=== PATIENT | male | born 1995 | race Hispanic/Latino ===

== ENCOUNTER → 2023-05-01 | Emergency (ER) | payer SELFPAY ==
[~2023-05-01] MED LIST: NA CHLORIDE 0.9% 100 ML ONE; TRANEXAMIC ACID 1,000 MG/10 ML VIAL IV ONE
[2023-05-01 21:32] LABS: Absolute Lymphocytes (CBC) 1.3 K/uL (0.7-4.9); Hematocrit 40.8 % (39.6-49.0); Lymphocytes % 28.1 % (15.3-44.8); MCV 85.7 fL (80-100); MPV 7.5 fL (7.6-11.3); Platelets 178 thou/uL (152-406); RBC Red Blood Cell Count 4.76 M/uL (4.33-5.43)
[2023-05-01 21:35] LABS: Protime INR 1.09
[2023-05-01 21:43] LABS: Albumin 4.3 g/dL (3.4-5.0); Bilirubin Total 0.5 mg/dL (0.2-1.0); Potassium 3.4 mEq/L (3.5-5.1); Protein, Total 7.7 g/dL (6.4-8.2)
--- NOTE | 2023-05-01 22:11 | ER ---
Nurse's Notes [facility] Name: Vincent Dotson Age: 27 yrs Sex: Male : 1995 Arrival Date: 05/01/2023 Time: 20:07 Bed 10 Private MD: Diagnosis: Acute gingivitis Presentation: 05/01 20:16 Chief complaint: Patient states: bleeding to upper and lower gums,onset yesterday after pf1 a deep cleaning at Dr. Mari office yesterday. Patient stated called Dr. Mari at 1600 and was told to go to ER with the bleeding did not slow down. 20:16 Coronavirus screen: Vaccine status: Patient reports receiving the 1st dose of the Covid pf1 vaccine. Client denies travel out of the [place] in the last 14 days. At this time, the client does not indicate any symptoms associated with coronavirus-19. Ebola Screen: Patient negative for fever greater than or equal to 101.5 degrees Fahrenheit, and additional compatible Ebola Virus Disease symptoms. Initial Sepsis Screen: Does the patient meet any 2 criteria? No. Patient's initial sepsis screen is negative. Does the patient have a suspected source of infection? No. Patient's initial sepsis screen is negative. Risk Assessment: Do you want to hurt yourself or someone else? Patient reports no desire to harm self or others. 20:16 Method Of Arrival: Ambulatory pf1 20:16 Acuity: TAYA 4 pf1 Historical: - Allergies: 20:38 No Known Allergies; pf1 - PMHx: 20:38 None; pf1 - PSHx: 20:38 Appendectomy; pf1 - Immunization history:: Adult Immunizations up to date, Client reports receiving the 1st dose of the Covid vaccine, pfizer Last tetanus immunization: > 10 years ago Flu vaccine is not up to date. - Social history:: Smoking status: Patient denies any tobacco usage or history of. Patient uses alcohol, weekly. Patient/guardian denies using street drugs. - Family history:: not pertinent. Screenin:20 [facility] ED Fall Risk Assessment (Adult) History of falling in the last 3 months, pf1 including since admission No falls in past 3 months (0 pts) Confusion or Disorientation No (0 pts) Intoxicated or Sedated No (0 pts) Impaired Gait No (0 pts) Mobility Assist Device Used No (0 pt) Altered Elimination No (0 pt) Score/Fall Risk Level 0 - 2 = Low Risk Oriented to surroundings, Maintained a safe environment, Educated pt \T\ family on fall prevention, incl call for assistance when getting out of bed, Assessed \T\ reinforced patient's understanding of fall precautions, Provided non-skid footwear, Hourly rounding (assess needs \T\ fall precautionary measures) done, Used ambulatory aids as needed (educated on \T\ assisted with), Used gait belt as appropriate. 20:20 Abuse screen: Denies threats or abuse. Nutritional screening: No deficits noted. pf1 Tuberculosis screening: No symptoms or risk factors identified. Assessment: 20:20 General: Appears in no apparent distress. comfortable, well groomed, well developed, pf1 Behavior is calm, cooperative, appropriate for age, quiet. 20:20 Pain: Denies pain. Neuro: No deficits noted. Level of Consciousness is awake, alert, pf1 obeys commands, Oriented to person, place, time, situation. Cardiovascular: No deficits noted. Capillary refill < 3 seconds Patient's skin is warm and dry. Respiratory: No deficits noted. Airway is patent Respiratory effort is even, unlabored, Respiratory pattern is regular, symmetrical. GI: No deficits noted. No signs and/or symptoms were reported involving the gastrointestinal system. : No deficits noted. No signs and/or symptoms were reported regarding the genitourinary system. EENT: Reports upper and lower gums bleeding,onset yesterday after a deep cleaning at the dentist office.. Derm: No deficits noted. No signs and/or symptoms reported regarding the dermatologic system. 21:30 Reassessment: Patient appears in no apparent distress at this time. Patient and/or pf1 family updated on plan of care and expected duration. Pain level reassessed. Patient is alert, oriented x 3, equal unlabored respirations, skin warm/dry/pink. 22:13 Reassessment: patient pending discharge after completion of fluids. pf1 22:30 Reassessment: Patient appears in no apparent distress at this time. Patient and/or pf1 family updated on plan of care and expected duration. Pain level reassessed. Patient is alert, oriented x 3, equal unlabored respirations, skin warm/dry/pink. Patient states symptoms have improved. Vital Signs: 20:16 BP 141 / 71; Pulse 65; Resp 18; Temp 98; Pulse Ox 99% on R/A; Weight 81.65 kg; Height 5 pf1 ft. 11 in. ; Pain 0/10; 21:30 BP 112 / 66; Pulse 60; Resp 16; Pulse Ox 100% ; pf1 22:30 BP 116 / 75; Pulse 62; Resp 16; Pulse Ox 99% on R/A; Pain 0/10; pf1 20:16 Body Mass Index 25.10 (81.65 kg, 180.34 cm) pf1 20:16 Pain Scale: Adult pf1 22:30 Pain Scale: Adult pf1 ED Course: 20:10 Patient arrived in ED. kj1 20:20 Patient has correct armband on for positive identification. Bed in low position. Call pf1 light in reach. 20:20 Arm band placed on right wrist. pf1 20:38 Triage completed. pf1 20:40 Rj Acosta MD is Attending Physician. rt 21:15 Inserted saline lock: 22 gauge in right antecubital area, using aseptic technique. pf1 Blood collected. 21:20 Ptt, Activated Sent. pf1 21:20 PT-INR Sent. pf1 21:20 CMP Sent. pf1 21:20 CBC with Diff Sent. pf1 22:54 No provider procedures requiring assistance completed. IV discontinued, intact, pf1 bleeding controlled, No redness/swelling at site. Pressure dressing applied. 22:56 Provided Education on: prescriptions. pf1 Administered Medications: 22:25 Drug: tranexamic acid 1000 mg IV at calculated rate once; administer at a rate not to pf1 exceed 100 mg per min Route: IV; Rate: calculated rate; Site: right antecubital; 22:50 Follow up: Response: No adverse reaction; IV Status: Completed infusion; IV Intake: pf1 100ml Medication: 22:57 VIS not applicable for this client. pf1 Intake: 22:50 IV: 100ml; Total: 100ml. pf1 Outcome: 22:11 Discharge ordered by . rt 22:56 Discharged to home ambulatory, pf1 22:56 Condition: improved 22:56 Discharge instructions given to patient, Instructed on discharge instructions, follow up and referral plans. Demonstrated understanding of instructions, follow-up care, medications, Prescriptions given X 2, 22:57 Patient left the ED. pf1 Signatures: Dominique Moreno kj1 Rj Acosta MD MD rt Ashley Barrios, RN RN pf1
--- NOTE | 2023-05-01 22:11 | EDPHYS ---
Physician Documentation [facility] Name: Vincent Dotson Age: 27 yrs Sex: Male : 1995 Arrival Date: 05/01/2023 Time: 20:07 Bed 10 Private MD: ED Physician Rj Acosta HPI: 05/02 00:16 This 27 yrs old Male presents to ER via Ambulatory with complaints of MOUTH rt BLEEDING /TOOTH PROBLEM. 00:16 Patient presents to the ED with bleeding gums. Yesterday, the patient had an extensive rt cleaning down on his gums. States that he had some mild bleeding at that time. Bleeding worsened today. He states that he does have a follow-up appointment with his dentist tomorrow. Was told to come to the ED for continued bleeding. Denies any pain, acute complaints at this time, symptoms are moderate severity, no other aggravating elevating factors.. Historical: - Allergies: 05/01 20:38 No Known Allergies; pf1 - PMHx: 20:38 None; pf1 - PSHx: 20:38 Appendectomy; pf1 - Immunization history:: Adult Immunizations up to date, Client reports receiving the 1st dose of the Covid vaccine, pfizer Last tetanus immunization: > 10 years ago Flu vaccine is not up to date. - Social history:: Smoking status: Patient denies any tobacco usage or history of. Patient uses alcohol, weekly. Patient/guardian denies using street drugs. - Family history:: not pertinent. ROS: 05/02 00:16 Constitutional: Negative for fever, chills, and weight loss, Cardiovascular: Negative rt for chest pain, palpitations, and edema, Respiratory: Negative for shortness of breath, cough, wheezing, and pleuritic chest pain, Abdomen/GI: Negative for abdominal pain, nausea, vomiting, diarrhea, and constipation, MS/Extremity: Negative for injury and deformity, Skin: Negative for injury, rash, and discoloration, Neuro: Negative for headache, weakness, numbness, tingling, and seizure, Psych: Negative for depression, anxiety, suicide ideation, homicidal ideation, and hallucinations, ENT: Positive for Gum bleeding, negative for dental pain, Exam: 00:16 Constitutional: This is a well developed, well nourished patient who is awake, alert, rt and in no acute distress. Head/Face: Normocephalic, atraumatic. Chest/axilla: Normal chest wall appearance and motion. Nontender with no deformity. No lesions are appreciated. Cardiovascular: Regular rate and rhythm with a normal S1 and S2. No gallops, murmurs, or rubs. Normal PMI, no JVD. No pulse deficits. Respiratory: Lungs have equal breath sounds bilaterally, clear to auscultation and percussion. No rales, rhonchi or wheezes noted. No increased work of breathing, no retractions or nasal flaring. Abdomen/GI: Soft, non-tender, with normal bowel sounds. No distension or tympany. No guarding or rebound. No evidence of tenderness throughout. Skin: Warm, dry with normal turgor. Normal color with no rashes, no lesions, and no evidence of cellulitis. MS/ Extremity: Pulses equal, no cyanosis. Neurovascular intact. Full, normal range of motion. Neuro: Awake and alert, GCS 15, oriented to person, place, time, and situation. Cranial nerves II-XII grossly intact. Motor strength 5/5 in all extremities. Sensory grossly intact. Cerebellar exam normal. Normal gait. 00:16 ENT: Mild oozing noted from multiple sites on the gums, no appreciable laceration. Vital Signs: 05/01 20:16 BP 141 / 71; Pulse 65; Resp 18; Temp 98; Pulse Ox 99% on R/A; Weight 81.65 kg; Height 5 pf1 ft. 11 in. ; Pain 0/10; 21:30 BP 112 / 66; Pulse 60; Resp 16; Pulse Ox 100% ; pf1 22:30 BP 116 / 75; Pulse 62; Resp 16; Pulse Ox 99% on R/A; Pain 0/10; pf1 20:16 Body Mass Index 25.10 (81.65 kg, 180.34 cm) pf1 20:16 Pain Scale: Adult pf1 22:30 Pain Scale: Adult pf1 MDM: 20:46 Patient medically screened. rt 05/02 00:16 Differential Diagnosis Gingivitis,, cytopenia, coagulopathy, anemia. Data reviewed: rt vital signs, nurses notes, lab test result(s). Counseling: I had a detailed discussion with the patient and/or guardian regarding the historical points, exam findings, and any diagnostic results supporting the discharge/admit diagnosis, lab results, the need for outpatient follow up. 05/01 20:51 Order name: CBC with Diff; Complete Time: 21:44 rt 05/01 20:51 Order name: CMP; Complete Time: 21:44 rt 05/01 20:51 Order name: PT-INR; Complete Time: 21:45 rt 05/01 20:51 Order name: Ptt, Activated; Complete Time: 21:45 rt Administered Medications: 05/01 22:25 Drug: tranexamic acid 1000 mg IV at calculated rate once; administer at a rate not to pf1 exceed 100 mg per min Route: IV; Rate: calculated rate; Site: right antecubital; 22:50 Follow up: Response: No adverse reaction; IV Status: Completed infusion; IV Intake: pf1 100ml Disposition Summary: 05/01/23 22:11 Discharge Ordered Notes: Location: Home rt Problem: new rt Symptoms: are unchanged rt Condition: Stable rt Diagnosis - Acute gingivitis rt Followup: rt - With: Private Physician - When: Tomorrow - Reason: Discharge Instructions: - Discharge Summary Sheet rt - Gingivitis rt Forms: - Medication Reconciliation Form rt - Thank You Letter rt - Antibiotic Education rt - Prescription Opioid Use rt - Patient Portal Instructions rt - Leadership Thank You Letter rt - Work release form pf1 Prescriptions: - Peridex 0.12 % Mucous Membrane Mouthwash - swish 15 milliliter MUCOUS MEMBRANE route 2 times per day; 210 milliliter; rt Refills: 0, Product Selection Permitted - tranexamic acid 650 mg Oral tablet - take 1 tablet ORAL route every 12 hours for 7 days; 14 tablet; Refills: 0, rt Product Selection Permitted Signatures: Dispatcher [employer] Rj López MD MD rt Ashley Barrios, HAILEY RN pf1
[2023-05-01 23:29] VITALS: TEMP 98
[2023-05-01 23:54] VITALS: BP 116/75; O2SAT 99
== END ==
LOC: ER 20:07
DX: K05.00 Acute gingivitis, plaque induced (principal)
CPT/HCPCS: 36415; 80053; 85025; 85610; 85730